=== PATIENT | male | born 2005 | race Caucasian/White ===

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

== ENCOUNTER 2023-01-08 16:00 | Emergency (ER) | payer MEDICAID, SELFPAY ==
[2023-01-08 16:06] VITALS: BP 127/82; PULSE 77; RESP 16; TEMP 37; O2SAT 95; BMI 37.2
[2023-01-08 16:51] LABS: Basophils # 0.1 10^3/uL (0.0-0.1); Basophils % 0.6 %; Eosinophils # 0.2 10^3/uL (0.0-0.8); Eosinophils % 2.6 %; Hematocrit 43.3 % (42.0-52.0); Hemoglobin 14.1 g/dL (11.7-16.6); Lymphocytes # 3.5 10^3/uL (1.5-6.5); Lymphocytes % 40.6 %; Mean Corpuscular HGB Conc 32.6 g/dL (30.0-36.0); Mean Corpuscular Hemoglobin 27.8 pg (28.0-34.0); Mean Corpuscular Volume 85.4 fl (80-94); Mean Platelet Volume 10.6 fL (7.4-10.4); Monocytes # 0.5 10^3/uL (0.2-0.9); Monocytes % 5.9 %; Neutrophils # 4.25 10^3/uL (1.8-8.0); Neutrophils % 50.1 %; Nucleated Red Blood Cells % 0 %; Platelet Count 223 10^3/cmm (130-400); Red Blood Count 5.07 10^6/uL (4.1-5.3); White Blood Count 8.5 10^3/uL (4.5-13.0)
[2023-01-08] MEDS: ondansetron 2 mg/ML SDV 2 mL 4 MG IVP (16:57)
[2023-01-08] MEDS: sodium chloride 0.9% 1,000 ML 999 ML IV (16:57)
--- NOTE | 2023-01-08 17:10 | W.ED.ABDPA2 ---
HPI - Abdominal Pain General: Chief Complaint: Abdominal Pain Stated Complaint: side pain, trouble breathing Time Seen by Provider: 01/08/23 16:13 Source: patient Mode of arrival: ambulatory History of Present Illness: 17-year-old male presents emergency room with left upper quadrant abdominal pain started resolved no vomiting no diarrhea no dysuria urgency or frequency. Symptoms began this afternoon and resolved by arrival in the ER. MD elicited complaint: abdominal pain Pertinent past history: none Onset (ago): hour(s) Pain Consistency: now resolved Location: None Quality: stabbing Exacerbating factors: nothing Relieving factors: nothing Associated Symptoms: Denies anorexia, belching, bloating, change in bowel habits, change in stool character, chills, coffee ground emesis, constipation, GI cramping, diarrhea, dyspepsia, dysuria, excessive flatus, fever(s), heartburn, hematochezia, hematuria, hematemesis, fecal incontinence, loose stools, melena, nausea, poor appetite, syncope and vomiting Review of Systems Const: Denies: fever(s) or chills Card: Denies: syncope GI: Denies: nausea, vomiting, hematemesis, coffee ground emesis, heartburn, diarrhea, constipation, bloating, GI cramping, belching, excessive flatus, fecal incontinence, change in bowel habits, change in stool character, hematochezia or melena : Denies: dysuria or hematuria PFSH ED PFSH: Medical History Acanthosis nigricans Asthma Mallet thumb of hand Nocturnal enuresis Obesity Pyloric stenosis Surgical History S/P tonsillectomy Family History Father CAD (coronary artery disease) Hyperlipidemia Hypertension Social History Smoking and tobacco status: current every day smoker smokeless tobacco Smokeless tobacco user: chewing tobacco Alcohol intake: never Highest education level completed: 10th Grade Physical Exam Const: GENERAL APPEARANCE: cooperative and comfortable ORIENTATION/CONSCIOUSNESS: Yes awake, Yes oriented to person, Yes oriented to place and Yes oriented to time HENMT: COMMON NORMALS: normocephalic, atraumatic and hearing grossly normal bilaterally HEAD & SCALP: normocephalic and atraumatic Resp: COMMON NORMALS: normal respiratory effort, No retractions, No use of accessory muscles and clear to auscultation bilaterally AUSCULTATION: clear to auscultation bilaterally Cardio: COMMON NORMALS: regular rate, regular rhythm and No murmurs present (Cardio) RATE: regular rate RHYTHM: regular rhythm GI: COMMON NORMALS: Soft to palpation and No hepatosplenomegaly present AUSCULTATION: Yes normoactive bowel sounds PALPATION: Yes Soft to palpation, No Tenderness to palpation present (GI), No Guarding due to palpation present (GI) and Yes No hepatosplenomegaly present Extremity: COMMON NORMALS: normal to inspection, capillary refill normal, no clubbing, cyanosis or edema, no calf tenderness and no pedal edema Neuro: SENSORIUM/ORIENTATION: Yes oriented to person, Yes oriented to place and Yes oriented to time Skin: COMMON NORMALS: no rashes or lesions noted GENERAL SKIN EXAM: no rashes or lesions noted Course Vital Signs: Vital signs: Vital Signs Temperature 98.6 F 01/08/23 17:48 Pulse Rate 77 01/08/23 17:48 Respiratory Rate 16 01/08/23 17:48 Blood Pressure 127/82 01/08/23 17:48 Pulse Oximetry 95 01/08/23 17:48 Oxygen Delivery Me thod 01/08/23 16:06 MDM - Abdominal Pain Medical Decision Making Symptoms resolved by the time the labs came back no acute findings on lab work. We will discharge patient home he can follow-up with his primary care doctor. He does have a history of asthma and has been using his inhaler little bit more often he has very slight wheezes on exam we gave him a refill of his inhaler at the time of discharge Medical Records I reviewed the patient's medical records. Lab Data I reviewed the patient's lab results. 01/08/23 16:43 01/08/23 16:43 Labs/Radiology: Laboratory Results WBC 8.5 10^3/uL (4.5-13.0) 01/08/23 16:43 RBC 5.07 10^6/uL (4.1-5.3) 01/08/23 16:43 Hgb 14.1 g/dL (11.7-16.6) 01/08/23 16:43 Hct 43.3 % (42.0-52.0) 01/08/23 16:43 MCV 85.4 fl (80-94) 01/08/23 16:43 MCH 27.8 pg (28.0-34.0) L 01/08/23 16:43 MCHC 32.6 g/dL (30.0-36.0) 01/08/23 16:43 RDW 13.0 % (12.1-15.1) 01/08/23 16:43 Plt Count 223 10^3/cmm (130-400) 01/08/23 16:43 MPV 10.6 fL (7.4-10.4) H 01/08/23 16:43 Neut % (Auto) 50.1 % 01/08/23 16:43 Lymph % (Auto) 40.6 % 01/08/23 16:43 [place] % (Auto) 5.9 % 01/08/23 16:43 Eos % (Auto) 2.6 % 01/08/23 16:43 Baso % (Auto) 0.6 % 01/08/23 16:43 Neut # (Auto) 4.25 10^3/uL (1.8-8.0) 01/08/23 16:43 Lymph # (Auto) 3.5 10^3/uL (1.5-6.5) 01/08/23 16:43 [place] # (Auto) 0.5 10^3/uL (0.2-0.9) 01/08/23 16:43 Eos # (Auto) 0.2 10^3/uL (0.0-0.8) 01/08/23 16:43 Baso # (Auto) 0.1 10^3/uL (0.0-0.1) 01/08/23 16:43 Nucleated RBC % (auto) 0 % 01/08/23 16:43 Nucleated RBCs # 0.0 /100WBC 01/08/23 16:43 Sodium 141 mmol/L (136-145) 01/08/23 16:43 Potassium 3.8 mmol/L (3.5-5.1) 01/08/23 16:43 Chloride 103 mmol/L (98-107) 01/08/23 16:43 Carbon Dioxide 26 mmol/L (22-29) 01/08/23 16:43 Anion Gap 15.8 (5-19) 01/08/23 16:43 BUN 18 mg/dL (6-20) 01/08/23 16:43 Creatinine 0.7 mg/dL (0.7-1.2) 01/08/23 16:43 GFR Calculation 145.3 mL/min (90-130) H 01/08/23 16:43 Glucose 102 mg/dL (65-115) 01/08/23 16:43 Calculated Osmolality 294 mOsm/kg (285-295) 01/08/23 16:43 Calcium 9.2 mg/dL (8.5-10.5) 01/08/23 16:43 Total Bilirubin 0.3 mg/dL (0.15-1.2) 01/08/23 16:43 AST 21 U/L (0-40) 01/08/23 16:43 ALT 17 U/L (0-41) 01/08/23 16:43 Alkaline Phosphatase 74 U/L (40-130) 01/08/23 16:43 Total Protein 7.6 g/dL (6.6-8.7) 01/08/23 16:43 Albumin 4.3 g/dL (3.5-5.2) 01/08/23 16:43 Globulin 3.3 g/dL (1.3-4.6) 01/08/23 16:43 Lipase 27 U/L (13-60) 01/08/23 16:43 Urine Color Yellow (Yellow) 01/08/23 16:55 Urine Appearance Clear (CLEAR) 01/08/23 16:55 Urine pH 6 (5-7) 01/08/23 16:55 Ur Specific [place] 1.025 (1.005-1.030) 01/08/23 16:55 Urine Protein Neg (Negative) 01/08/23 16:55 Urine Glucose (UA) Norm (Normal) 01/08/23 16:55 Urine Ketones Negative (Negative) 01/08/23 16:55 Urine Blood Neg (Negative) 01/08/23 16:55 Urine Nitrate Negative (Negative) 01/08/23 16:55 Urine Bilirubin Neg (Negative) 01/08/23 16:55 Urine Urobilinogen Norm mg/dL (Negative) 01/08/23 16:55 Ur Leukocyte Esterase Negative (Negative) 01/08/23 16:55 Discharge Plan Discharge Patient Disposition: Home Clinical Impression: Abdominal pain, Asthma Condition: Stable Prescriptions: New albuterol sulfate 90 mcg/actuation HFA aerosol inhaler 2 inh INHALATION Q4H PRN (Reason: shortness of breath or wheezing) Qty: 18 0RF Discharge Orders: Discharge ED (Routine); Ordered 01/08/23 Ordered By: Julien Reyes Referrals: Marya Woodson FNP [Primary Care Provider] - Patient Instructions: Abdominal Pain (ED), Opioid Safety, Pain Management Activity Restrictions/Additional Instructions: You were seen today for abdominal pain. Your labs and exam were normal your symptoms had resolved by the time your labs had returned. Do not recommend any further evaluation at this time return if you have further problems. Coding Level of Care Code ED Boat Outboard Engine Mechanic for Winsome Horner
[2023-01-08 17:11] LABS: Alanine Aminotransferase 17 U/L (0-41); Albumin Level 4.3 g/dL (3.5-5.2); Alkaline Phosphatase 74 U/L (40-130); Anion Gap 15.8 (5-19); Aspartate Amino Transferase 21 U/L (0-40); Blood Urea Nitrogen 18 mg/dL (6-20); Calcium 9.2 mg/dL (8.5-10.5); Carbon Dioxide 26 mmol/L (22-29); Chloride 103 mmol/L (98-107); Globulin 3.3 g/dL (1.3-4.6); Glomerular Filtration Rate 145.3 mL/min (90-130); Glucose 102 mg/dL (65-115); Lipase 27 U/L (13-60); Osmolality Calculated 294 mOsm/kg (285-295); Potassium 3.8 mmol/L (3.5-5.1); Sodium 141 mmol/L (136-145); Total Bilirubin 0.3 mg/dL (0.15-1.2); Total Protein 7.6 g/dL (6.6-8.7)
[2023-01-08 17:19] LABS: Add Urine Microscopic? NO; Charge for UA Resulting for Rev
[2023-01-08 17:30] LABS: Bilirubin Urine Neg (Negative); Blood Urine Neg (Negative); Glucose Urine UA Norm (Normal); Ketones Urine Negative (Negative); Leukocyte Esterase Urine Negative (Negative); Nitrate Urine Negative (Negative); Protein Urine Neg (Negative); Specific Gravity, Urine 1.025 (1.005-1.030); Urine Appearance Clear (CLEAR); Urine Color Yellow (Yellow); Urobilinogen Urine Norm (Negative); pH Urine 6 (5-7)
[2023-01-08 17:48] VITALS: BP 127/82; PULSE 77; RESP 16; TEMP 37; O2SAT 95
== END 2023-01-08 17:50 | disposition home or self-care (01) ==
PROVIDERS: Emergency Provider Family Medicine; PCP Registered Nurse
DX: R10.12 Left upper quadrant pain (principal); J45.909 Unspecified asthma, uncomplicated; F17.220 Nicotine dependence, chewing tobacco, uncomplicated
CPT/HCPCS: 80053; 81003; 83690; 85025; 96374; 99284; J2405; J7030

== ENCOUNTER 2023-07-20 14:24 | Emergency (ER) | payer MEDICAID, SELFPAY ==
[2023-07-20 14:25] VITALS: BP 157/82; PULSE 111; RESP 17; TEMP 36.7; O2SAT 98; BMI 41.1
--- NOTE | 2023-07-20 14:34 | ED_ITS ---
HPI - Skin/Abscess/Foreign Bdy General: Chief complaint: Skin/Abscess/Foreign Body Stated complaint: right side of face swelling, body rash/hives Time Seen by Provider: 07/20/23 14:25 Source: patient Mode of arrival: ambulatory Limitations: no limitations History of Present Illness: Patient is a 18-year-old male who presents to ED today for evaluation of a possible allergic reaction. Patient states he woke up this morning on the right side of his face seemed puffy . He states he noticed a rash to his bilateral lower extremities and states that he feels itchy all over . He also feels like his bilateral lower forearms and hands feel swollen and tight . He states he took 50 mg of Benadryl several hours ago and feels like it did help with the right-sided facial swelling. He denies lip or tongue swelling. No difficulty breathing or swallowing. Denies any known chemical/household/environmental/food new exposures. MD complaint: rash Onset (ago): hour(s) Tetanus up to date: yes Location: generalized Severity: mild Quality: pruritic Relieving factors: other (benadryl) Exacerbating factors: none Associated symptoms: Reports no associated symptoms; Deny chills, fever(s), nausea or vomiting Treatments prior to arrival: Benadryl Review of Systems Const: Denies: fever(s), chills, body aches, fatigue or malaise Eyes: Denies: change in vision, blurry vision, photophobia, floaters or seeing flashes ENMT: Denies: throat pain, uvular edema, enlarged tonsils, odynophagia, swelling of lips/tongue, oral sores, nasal discharge, nasal congestion or sinus pain Card: Denies: chest pain Resp: Denies: dyspnea GI: Denies: nausea or vomiting Musc: Reports: other (feels like hands are swollen); Denies: neck pain, back pain, extremity pain or joint pain Skin/Breast: Reports: rash and pruritus Neuro: Denies: headache(s), numbness in extremities, weakness in extremities, sensory changes or dizziness [facility] ED PFSH: Medical History Acanthosis nigricans Asthma Mallet thumb of hand Nocturnal enuresis Obesity Pyloric stenosis Surgical History S/P tonsillectomy Family History Father CAD (coronary artery disease) Hyperlipidemia Hypertension Social History Smoking and tobacco status: current every day smoker smokeless tobacco Smokeless tobacco user: chewing tobacco Alcohol intake: never Substance/Drug Use: never Highest education level completed: 10th Grade Physical Exam Const: COMMON NORMALS: no acute distress, patient oriented x3, no limitations and alert ORIENTATION/CONSCIOUSNESS: Yes awake, Yes oriented to person, Yes oriented to place and Yes oriented to time HENMT: COMMON NORMALS: normocephalic and atraumatic HEAD & SCALP: normal to inspection, normocephalic and atraumatic FACE & SINUS: normal facial exam; no erythema and no edema MOUTH: Normal oral and palatal mucosa present, lip normal and tongue normal THROAT: posterior oropharynx normal, tonsils normal and uvula midline; no uvular edema Eye: GENERAL EYE: appearance normal, both eyes and all related structures Neck/C-Spine: GENERAL: Yes normal visual inspection, No anterior neck swelling and No submandibular swelling Resp: COMMON NORMALS: normal respiratory effort and clear to auscultation bilaterally AUSCULTATION: clear to auscultation bilaterally Cardio: COMMON NORMALS: regular rate and regular rhythm RATE: regular rate RHYTHM: regular rhythm Extremity: COMMON NORMALS: normal to inspection and full ROM GENERAL: Yes normal exam except as noted Neuro: PEDRO COMA SCALE: document GCS findings Gordon coma scale eye opening: Spontaneous Gordon coma scale verbal response: Orientated Gordon coma scale motor response: Obey commands Gordon coma scale total score: 15 COMMON NORMALS: patient oriented x3, moves all extremities, no focal motor deficits and no sensory deficits noted SENSORIUM/ORIENTATION: Yes alert, Yes oriented to person, Yes oriented to place and Yes oriented to time Skin: RASHES: rashes noted (urticarial) Course Vital Signs: Vital signs: Vital Signs Temperature 98.1 F 07/20/23 14:25 Pulse Rate 95 07/20/23 14:51 Respiratory Rate 19 H 07/20/23 14:51 Blood Pressure 157/82 07/20/23 14:51 Pulse Oximetry 99 07/20/23 14:51 Oxygen Delivery Me thod Room Air 07/20/23 14:51 MDM - Skin/Abscess/Foreign Bdy Medicial Decision Making States he feels better after IV steroids, Benadryl, Pepcid. He feels like hands are no longer swollen and rash is fading. He is no longer having pruritus. Will be allowed discharge with instructions to continue Benadryl every 4-6 hours as needed. Return to ED precautions given. No radiology studies performed this visit Discharge Plan Discharge Patient Disposition: Home Clinical Impression: Urticaria Allergic reaction Qualifiers: Encounter type: initial encounter Qualified Code(s): T78.40XA - Allergy, unspecified, initial encounter Condition: Stable Prescriptions: No Action albuterol sulfate 90 mcg/actuation HFA aerosol inhaler 2 inh INHALATION Q4H PRN (Reason: shortness of breath or wheezing) Qty: 18 0RF Discharge Orders: Discharge ED (Routine); Ordered 07/20/23 Ordered By: Sujey Gamboa Patient Instructions: Allergic Reaction, Urticaria Coding Level of Care Code ED Roofer Helper V[employer] Coating for Winsome Horner
[2023-07-20] MEDS: famotidine 20 mg/2 mL INJ 40 MG IVP (14:45)
[2023-07-20] MEDS: diphenhydrAMINE 50 mg/mL SDV 1mL IVP (14:46)
[2023-07-20] MEDS: hydrocortisone 100 mg/2 mL SDV IVP (14:49)
[2023-07-20 14:51] VITALS: BP 157/82; PULSE 95; RESP 19; O2SAT 99
[2023-07-20 15:29] VITALS: PULSE 90; RESP 18; O2SAT 99
== END 2023-07-20 15:30 | disposition home or self-care (01) ==
PROVIDERS: Emergency Provider Physician Assistant
DX: L50.9 Urticaria, unspecified (principal); T78.40XA Allergy, unspecified, initial encounter; X58.XXXA Exposure to other specified factors, initial encounter; F17.220 Nicotine dependence, chewing tobacco, uncomplicated
CPT/HCPCS: 96374; 96375; 99284; J1200; J1720; J3490

== ENCOUNTER 2023-10-29 10:58 | Emergency (ER) | payer MEDICAID, SELFPAY ==
[2023-10-29 10:59] VITALS: BP 151/71; PULSE 88; RESP 17; TEMP 36.6; O2SAT 96
--- NOTE | 2023-10-29 11:11 | ECG_ITS ---
[facility] Test Date: 2023-10-29 Pat Name: Abel Hill Department: Room: Gender: Male Conservation Specialist: : 2005 Requested By: Art Villalba Order Number: [id number] Carlos MD: Rk Chris M.D. Measurements Intervals [place] Rate: 84 P: 26 IA: 204 QRS: -11 QRSD: 132 T: 31 QT: 380 QTc: 452 Interpretive Statements SINUS RHYTHM INTRAVENTRICULAR CONDUCTION DELAY [130+ ms QRS DURATION] Compared to ECG 09/01/2017 20:22:57 Intraventricular conduction delay now present Electronically Signed On 10-29-2023 13:31:15 [employer] by Rk Chris M.D. [id number]
--- NOTE | 2023-10-29 11:11 | XRR_ITS ---
PROCEDURE INFORMATION: Exam: XR Chest Exam date and time: 10/29/2023 11:21 AM Age: 18 years old Clinical indication: Pain; Chest pressure; Additional info: Cough pleuritic chest pain TECHNIQUE: Imaging protocol: Radiologic exam of the chest. Views: 1 view. COMPARISON: CR XR chest 2V* [id number] 09/01/2017 8:45 PM FINDINGS: Lungs: Unremarkable. No consolidation. Pleural spaces: Unremarkable. No pleural effusion. No pneumothorax. Heart/Mediastinum: Unremarkable. No cardiomegaly. Bones/joints: Unremarkable. XR/XR chest 1V portable [id number] IMPRESSION: No acute findings.
--- NOTE | 2023-10-29 11:48 | ED_ITS ---
HPI - Chest Pain 2 General: Chief Complaint: Chest Pain Stated Complaint: chest pains Time Seen by Provider: 10/29/23 11:11 History of Present Illness: Patient presents to the ER with complaints of substernal sharp stabbing chest pain that radiates to his back. Patient states this is worse when he takes a cough or a big deep breath. Patient has no nausea vomiting shortness of breath diaphoresis or cardiac history. Patient states has been having this pain off and on for the last 4. Patient has no overt sickness. Review of Systems 2 General: Reports: 10 or more systems reviewed and unremarkable except in HPI and below PFSH ED 2 PFSH: Medical History Acanthosis nigricans Asthma Pyloric stenosis Mallet thumb of hand Obesity Nocturnal enuresis Surgical History S/P tonsillectomy Family History Father CAD (coronary artery disease) Hyperlipidemia Hypertension Social History Smoking and tobacco/nicotine status: current every day tobacco/nicotine user smokeless tobacco Smokeless tobacco user: chewing tobacco Alcohol intake: never Substance/Drug Use: never Highest education level completed: 10th Grade Physical Exam 2 Const: COMMON NORMALS: no acute distress, average body habitus, patient oriented x3, no limitations, healthy appearing, alert and well nourished HENMT: COMMON NORMALS: normocephalic, atraumatic, hearing grossly normal bilaterally, external ears normal, Normal external nose present, moist oral mucous membranes and oropharynx normal HEAD & SCALP: normocephalic and atraumatic NOSE: Normal external nose present EXTERNAL EAR: Yes external ears normal Neck/C-Spine: COMMON NORMALS: full ROM, no lymphadenopathy, supple, no meningeal signs, no JVD and Thyroid normal THYROID: Thyroid normal Chest: COMMONS NORMALS: normal inspection of the chest and normal palpation of entire chest wall Resp: COMMON NORMALS: normal respiratory effort, No retractions, No use of accessory muscles and clear to auscultation bilaterally AUSCULTATION: clear to auscultation bilaterally Cardio: COMMON NORMALS: no JVD, regular rate, regular rhythm, S1 normal heart sound present, S2 normal heart sound present, No gallops present (Cardio), No clicks present (Cardio), No murmurs present (Cardio) and No rub (Cardio) R ATE: regular rate RHYTHM: regular rhythm HEART SOUNDS: S1 normal heart sound present and S2 normal heart sound present GI: COMMON NORMALS: Normal to inspection, nondistended, normoactive bowel sounds present, Soft to palpation, non-tender, No hepatosplenomegaly present, no masses and no bruits PALPATION: Yes Soft to palpation and Yes No hepatosplenomegaly present Neuro: COMMON NORMALS: patient oriented x3 SENSORIUM/ORIENTATION: Yes alert MENINGEAL SIGNS: Yes no meningeal signs Course 2 Vital Signs: Vital signs: Vital Signs Temperature 97.8 F 10/29/23 10:59 Pulse Rate 88 10/29/23 10:59 Respiratory Rate 17 10/29/23 10:59 Blood Pressure 151/71 10/29/23 10:59 Pulse Oximetry 96 10/29/23 10:59 Oxygen Delivery Me thod Room Air 10/29/23 10:59 MDM - Chest Pain Medical Decision Making Patient presents with pleuritic type chest pain that is worse when he takes a big deep breath in or coughs. Patient had CBC CMP troponin chest x-ray and EKG all performed which was all negative. This is thought to be noncardiac in nature. Patient will be placed on prednisone 50 mg a day for the next 5 days and should follow-up with his PCP for further evaluation and treatment. Differential Diagnosis Unlikely acute massive pulmonary embolism, acute respiratory failure, acute myocardial infarction, cardiac arrest or sudden cardiac Medical Records I reviewed the patient's medical records. Lab Data I reviewed the patient's lab results. 10/29/23 11:48 10/29/23 11:48 Radiology Impressions Chest X-Ray 10/29/23 11:11 IMPRESSION: No acute findings. Laboratory Results WBC 6.85 10^3/uL (4.5-13.0) 10/29/23 11:48 RBC 5.10 10^6/uL (3.85-5.65) 10/29/23 11:48 Hgb 14.90 g/dL (13.2-15.6) 10/29/23 11:48 Hct 44.2 % (37-53) 10/29/23 11:48 MCV 86.7 fl (82-101) 10/29/23 11:48 MCH 29.2 pg (27-33) 10/29/23 11:48 MCHC 33.7 g/dL (30-55) 10/29/23 11:48 RDW 12.3 % (12.1-15.1) 10/29/23 11:48 Plt Count 192 10^3/cmm (157-399) 10/29/23 11:48 MPV 9.8 fL (7.4-10.4) 10/29/23 11:48 Neut % (Auto) 49.3 % 10/29/23 11:48 Lymph % (Auto) 37.4 % 10/29/23 11:48 Emanuel % (Auto) 8.9 % 10/29/23 11:48 Eos % (Auto) 3.2 % 10/29/23 11:48 Baso % (Auto) 0.9 % 10/29/23 11:48 Neut # (Auto) 3.38 10^3/uL (1.8-8.0) 10/29/23 11:48 Lymph # (Auto) 2.6 10^3/uL (1.5-6.5) 10/29/23 11:48 Emanuel # (Auto) 0.6 10^3/uL (0.2-0.9) 10/29/23 11:48 Eos # (Auto) 0.2 10^3/uL (0.0-0.8) 10/29/23 11:48 Baso # (Auto) 0.1 10^3/uL (0.0-0.1) 10/29/23 11:48 Nucleated RBC % (auto) 0 % 10/29/23 11:48 Nucleated RBCs # 0.0 /100WBC 10/29/23 11:48 Sodium 141 mmol/L (136-145) 10/29/23 11:48 Potassium 4.3 mmol/L (3.5-5.1) 10/29/23 11:48 Chloride 105 mmol/L (98-107) 10/29/23 11:48 Carbon Dioxide 26 mmol/L (22-29) 10/29/23 11:48 Anion Gap 14.3 (5-19) 10/29/23 11:48 BUN 15 mg/dL (6-20) 10/29/23 11:48 Creatinine 0.8 mg/dL (0.7-1.2) 10/29/23 11:48 GFR Calculation 123.2 mL/min (90-130) 10/29/23 11:48 Glucose 83 mg/dL (65-115) 10/29/23 11:48 Calculated Osmolality 292 mOsm/kg (285-295) 10/29/23 11:48 Calcium 9.5 mg/dL (8.5-10.5) 10/29/23 11:48 Total Bilirubin 0.4 mg/dL (0.15-1.2) 10/29/23 11:48 AST 20 U/L (0-40) 10/29/23 11:48 ALT 26 U/L (0-41) 10/29/23 11:48 Alkaline Phosphatase 74 U/L (40-130) 10/29/23 11:48 Troponin T Baseline < 6 ng/L (0-15) 10/29/23 11:48 Total Protein 7.1 g/dL (6.6-8.7) 10/29/23 11:48 Albumin 4.2 g/dL (3.5-5.2) 10/29/23 11:48 Globulin 2.9 g/dL (1.3-4.6) 10/29/23 11:48 All radiology interpretation(s) finalized by discharge EKG Data EKG 1: I personally reviewed and interpreted this EKG as follows: EKG interpretation date: 10/29/23 EKG interpretation time: 11:05 Prior EKG tracings: not available for review Interpretation: EKG showed ventricular rate 84 bpm, NC interval 204, QRS duration 132, QTc 422, sinus rhythm, intraventricular conduction delay. Discharge Plan Discharge Patient Disposition: Home Clinical Impression: Chest pain, pleuritic Condition: Stable Prescriptions: No Action No Known Home Medications Discharge Orders: Discharge ED (Routine); Ordered 10/29/23 Ordered By: Art Villalba Patient Instructions: Noncardiac Chest Pain (ED) Activity Restrictions/Additional Instructions: Your workup in ER did not show any acute cardiac cause for your chest pain it is thought to be pleuritic in nature. Please take all your medicine as directed. Please follow-up with your family practice physician within the next 7 to 10 days for further evaluation and treatment as needed. Coding Level of Care Code ED Exceptional [employer] Teacher for Winsome Horner
[2023-10-29 11:57] LABS: Basophils # 0.1 10^3/uL (0.0-0.1); Basophils % 0.9 %; Eosinophils # 0.2 10^3/uL (0.0-0.8); Eosinophils % 3.2 %; Hematocrit 44.2 % (37-53); Lymphocytes # 2.6 10^3/uL (1.5-6.5); Lymphocytes % 37.4 %; Mean Corpuscular HGB Conc 33.7 g/dL (30-55); Mean Corpuscular Hemoglobin 29.2 pg (27-33); Mean Corpuscular Volume 86.7 fl (82-101); Mean Platelet Volume 9.8 fL (7.4-10.4); Monocytes # 0.6 10^3/uL (0.2-0.9); Monocytes % 8.9 %; Neutrophils # 3.38 10^3/uL (1.8-8.0); Neutrophils % 49.3 %; Nucleated Red Blood Cells % 0 %; Platelet Count 192 10^3/cmm (157-399); Red Cell Distribution Width 12.3 % (12.1-15.1); White Blood Count 6.85 10^3/uL (4.5-13.0)
[2023-10-29 12:21] LABS: Troponin(5th) Baseline < 6 ng/L (0-15)
[2023-10-29 12:24] LABS: Alanine Aminotransferase 26 U/L (0-41); Albumin Level 4.2 g/dL (3.5-5.2); Alkaline Phosphatase 74 U/L (40-130); Anion Gap 14.3 (5-19); Aspartate Amino Transferase 20 U/L (0-40); Blood Urea Nitrogen 15 mg/dL (6-20); Calcium 9.5 mg/dL (8.5-10.5); Carbon Dioxide 26 mmol/L (22-29); Chloride 105 mmol/L (98-107); Globulin 2.9 g/dL (1.3-4.6); Glomerular Filtration Rate 123.2 mL/min (90-130); Glucose 83 mg/dL (65-115); Osmolality Calculated 292 mOsm/kg (285-295); Potassium 4.3 mmol/L (3.5-5.1); Sodium 141 mmol/L (136-145); Total Bilirubin 0.4 mg/dL (0.15-1.2); Total Protein 7.1 g/dL (6.6-8.7)
== END 2023-10-29 12:42 | disposition home or self-care (01) ==
PROVIDERS: Emergency Provider Emergency Medicine
DX: R09.1 Pleurisy (principal); F17.220 Nicotine dependence, chewing tobacco, uncomplicated
CPT/HCPCS: 36415; 71045; 80053; 84484; 85025; 93005; 99285